=== PATIENT | female | born 1985 | race Caucasian/White ===

== ENCOUNTER → 2018-07-23 15:57 | Outpatient (CLI) | payer BC, SELFPAY ==
[2018-07-23 17:51] LABS: Cholesterol 219 mg/dL (200); High Density Lipoprotein 52 mg/dL; Thyroid Stim Hormone (TSH) 1.95 uIU/mL (0.358-3.74); Triglycerides 145 mg/dL; Very Low Density Lipoprotein 29 mg/dL (5-40)
== END ==
PROVIDERS: Family Provider Family Medicine; PCP Family Medicine; Referring Provider Family Medicine; Visit Provider Family Medicine
DX: E78.5 Hyperlipidemia, unspecified (principal); Z83.49 Family history of other endocrine, nutritional and metabolic diseases
CPT/HCPCS: 36415; 80061; 84439; 84443